=== PATIENT | female | born 1985 | race Caucasian/White ===

== ENCOUNTER 2019-05-28 11:42 | Emergency (ER) | payer BC ==
[2019-05-28] MEDS ORDERED: TORAdol 30 mg Injection IM ONE (12:32)
[2019-05-28] MEDS ORDERED: Norflex 60 MG/2 ML IM ONE (12:32)
[2019-05-28] MEDS ORDERED: TORAdol 30 mg Injection ONE (12:39)
[2019-05-28] MEDS ORDERED: Norflex 60 MG/2 ML ONE (12:45)
--- NOTE | 2019-05-28 12:47 | ERPHSYRPT ---
- History of Present Illness Time Seen by Provider: 05/28/19 12:23 Source: patient Exam Limitations: no limitations Patient Subjective Stated Complaint: pt her for left sided back pain that radiates down left leg for a month now, no injury,was seen at [facility] and sent here Triage Nursing Assessment: pt alert,walked in , no distress, resp easy, skin w/d /p, moves all ext well, Physician History: 33 years old female presented in the ER with 1 month history of left low back/ back tie pain with radiation to left foot area with progressive worsening. Patient was recently on a cruise ship and was quarantined for 14 days and went back to work 2 days ago and yesterday while standing her pain was getting worse. She also complained of some tingling/numbness sensation on the left lateral heel area but no weakness in the lower extremities. No loss of bowel or bladder control. No swelling of the extremity. No fever or chills reported. Denies any fall or trauma to the back. Timing/Duration: week(s) (4), gradual onset, worse Method of Injury: unknown Quality: sharp, throbbing Back Pain Radiation: upper legs, lower legs, feet Severity of Pain-Max: severe Severity of Pain-Current: severe Modifying Factors: Improves With: movement, pain medication Associated Symptoms: tingling in legs/feet, No fever, No chills, No sweating, No urinary incontinence, No loss of bowel control, No constipation, No nausea, No vomiting, No problems urinating, No light-headedness, No dizziness, No weakness, No sensory/motor loss, No muscle spasms, No other Previous symptoms: no prior history Allergies/Adverse Reactions: No Known Drug Allergies Allergy (Unverified 05/28/19 12:11) Hx Influenza Vaccination/Date Given: Yes Hx Pneumococcal Vaccination/Date Given: No Immunizations Up to Date: Yes Travel Risk - International Travel Have you traveled outside of the country in past 3 weeks: Yes If Yes, where;: [place] Have you or anyone close to you been diagnosed with or: No Do your reside in a community with a known COVID-19 case?: Yes If Yes where:: [place] - Coronavirus Screening Has patient experienced Coronavirus symptoms: No - Review of Systems Constitutional: No Symptoms Eyes: No Symptoms Ears, Nose, & Throat: No Symptoms Respiratory: No Symptoms Cardiac: No Symptoms Abdominal/Gastrointestinal: No Symptoms Genitourinary Symptoms: No Symptoms Musculoskeletal: Back Pain, Myalgias Skin: No Symptoms Neurological: No Symptoms Psychological: No Symptoms Endocrine: No Symptoms Hematologic/Lymphatic: No Symptoms Immunological/Allergic: No Symptoms - Past Medical History Pertinent Past Medical History: No - Past Surgical History Past Surgical History: Yes Female Surgical History: Section, Other Other Surgical History: ablasion - Social History Smoking Status: Never smoker Exposure to second hand smoke: No Drug Use: marijuana Patient Lives Alone: No - Female History Hx Last Menstrual Period: ablasion Hx Now: No - Nursing Vital Signs Nursing Vital Signs: Initial Vital Signs Temperature 97.9 F 05/28/19 12:00 Pulse Rate 66 05/28/19 12:00 Respiratory Rate 20 05/28/19 12:00 Blood Pressure 144/99 05/28/19 12:00 O2 Sat by Pulse Oximetry 100 05/28/19 12:00 Pain Scale Pain Intensity [Left Back] 8 Pain Intensity 8 - Physical Exam General Appearance: no apparent distress Eye Exam: eyes nml inspection Ears, Nose, Throat Exam: normal ENT inspection Neck Exam: normal inspection Respiratory Exam: normal breath sounds, lungs clear Cardiovascular Exam: regular rate/rhythm, normal heart sounds Gastrointestinal Exam: soft, normal bowel sounds, No tenderness Back Exam: normal inspection, normal range of motion, muscle spasm, point tenderness (Left sacroiliac area), No CVA tenderness, No vertebral tenderness Extremity Exam: normal inspection, pelvis stable, other (Positive straight leg raising test on the left at 45 degree elevation), No parasthesia, No azeb's sign Neurologic Exam: alert, oriented x 3, cooperative, multigraph operator II-XII nml as tested, normal mood/affect, nml station & gait, sensation nml, No motor deficits, No sensory deficit Skin Exam: normal color SpO2 Interpretation: normal SpO2: 100 O2 Delivery: Room Air Ordered Tests: Medication Summary Discontinued Medications Generic Name Dose Route Start Last Admin Trade Name Freq PRN Reason Stop Dose Admin Ketorolac Tromethamine 30 mg 05/28/19 12:32 05/28/19 12:48 Toradol 30 Mg Injection IM 05/28/19 12:33 30 mg STAT ONE Administration Ketorolac Tromethamine Confirm 05/28/19 12:39 Toradol 30 Mg Injection Administered 05/28/19 12:40 Dose 30 mg .ROUTE .STK-MED ONE Orphenadrine Citrate 60 mg 05/28/19 12:32 05/28/19 12:47 Norflex 60 Mg/2 Ml IM 05/28/19 12:33 60 mg STAT ONE Administration Orphenadrine Citrate Confirm 05/28/19 12:45 Norflex 60 Mg/2 Ml Administered 05/28/19 12:46 Dose 60 mg .ROUTE .STK-MED ONE - Progress Progress: improved, pain not gone completely Progress Note: 05/28/19 13:33 She is given Toradol and Norflex, on reevaluation her pain is improving. She does not have any cauda equina symptoms but more of a sciatica. Intact neuro and lower extremities. I do not think patient needs MRI immediately now but may be in future if her symptoms do not get better. I would continue with NSAIDs and muscle relaxant to go home and outpatient follow-up. Discussed signs symptoms of worsening needing return to ER which she seemed understanding. Stable for discharge. - Departure Departure Disposition: Home Clinical Impression: Sciatica Qualifiers: Laterality: left Qualified Code(s): M54.32 - Sciatica, left side Condition: Stable Critical Care Time: No Referrals: JAMA HEREDIA FNP [Primary Care Provider] - Instructions: Sciatica (DC) Additional Instructions: Take pain medication/muscle relaxants and follow-up outpatient with primary care for reevaluation. Return to ER for intractable pain, numbness tingling weakness of lower extremities/loss of bowel or bladder control etc. Prescriptions: Diclofenac Sodium 75 mg PO BID #20 tablet. Methocarbamol [Robaxin-750] 750 mg PO TID #30 tablet
[2019-05-28 13:05] VITALS: BP 127/88; PULSE 70
[2019-05-28 13:32] VITALS: O2SAT 100
== END 2019-05-28 13:59 | disposition home or self-care (01) ==
LOC: ED 11:42
DX: M54.32 Sciatica, left side (principal)
CPT/HCPCS: 96372; 99284; J1885; J2360

== ENCOUNTER 2021-01-11 13:18 | Day surgery (SDC) | payer BC ==
[2021-01-11] MEDS ORDERED: LIDOCAINE HCL 2% 100 MG/5 ML IJ ONE (13:19)
[2021-01-11] MEDS ORDERED: Versed 2 MG/2 ML Injection ONE (13:57)
[2021-01-11] MEDS ORDERED: DIPRIVAN 200 MG/20 ML IV ONE (15:38)
[2021-01-11] MEDS ORDERED: Xylocaine-Mpf 2% 5 Ml Vial ONE (15:38)
--- NOTE | 2021-01-11 16:24 | XRAY ---
Indication: Bilateral L4-S1 MBB. Intraoperative fluoroscopy provided for 15 seconds. Single digital spot image submitted for interpretation demonstrates posterior needle tips projecting over the expected left and right L4-S1 nerve roots. Correlate with intraoperative findings/report.
[2021-01-11] MEDS ORDERED: Lactated Ringers 1,000 ML IV ONE (16:29)
--- NOTE | 2021-01-11 16:39 | XRAY ---
15 seconds fluoroscopy time in surgery for bilateral L4-S1 MBB.
== END 2021-01-11 16:05 | disposition home or self-care (01) ==
LOC: SDC-PAIN 13:18
PROVIDERS: ATTEND Psychiatry & Neurology Pain Medicine
DX: M47.816 Spondylosis without myelopathy or radiculopathy, lumbar region (principal); Z79.891 Long term (current) use of opiate analgesic
CPT/HCPCS: 64493; 64494; 72020; 77002; 84703; J2250; J2704

== ENCOUNTER 2022-03-18 06:17 | Emergency (ER) | payer BC ==
[2022-03-18] MEDS ORDERED: CLINDAMYCIN-D5W 900 MG/50 ML*** 900 MG/50 ML BAG IV STA (06:24)
[2022-03-18] MEDS ORDERED: NORCO 5/325 MG PO ONE (06:26)
[2022-03-18 06:33] VITALS: BP 147/99; PULSE 85; O2SAT 97
--- NOTE | 2022-03-18 06:33 | ERPHSYRPT ---
- History of Present Illness Time Seen by Provider: 03/18/22 06:27 Source: patient Exam Limitations: no limitations Physician History: Patient is a 36-year-old female who presents with complaint of left maxillary dental pain. This started yesterday morning the dentist did call her in some penicillin which she has been taking overnight however the entire right side of her face is swollen and she has had fairly severe pain. She says that the tooth involved is 1 that the dentist has recommended a root canal on for some time however she cannot afford it. Timing/Duration: yesterday Severity: severe Modifying Factors: Improves With: eating Allergies/Adverse Reactions: No Known Drug Allergies Allergy (Unverified 05/28/19 12:11) Hx Influenza Vaccination/Date Given: Yes Hx Pneumococcal Vaccination/Date Given: No - Review of Systems Constitutional: No Fever, No Chills Eyes: No Symptoms Ears, Nose, & Throat: No Symptoms, Mouth Pain, Mouth Swelling, Other (Dental pain) Respiratory: No Cough, No Dyspnea Cardiac: No Chest Pain, No Edema, No Syncope Abdominal/Gastrointestinal: No Abdominal Pain, No Nausea, No Vomiting, No Diarrhea Genitourinary Symptoms: No Dysuria Musculoskeletal: No Back Pain, No Neck Pain Skin: No Rash Neurological: No Dizziness, No Focal Weakness, No Sensory Changes Psychological: No Symptoms Endocrine: No Symptoms All Other Systems: Reviewed and Negative - Past Medical History Pertinent Past Medical History: No - Past Surgical History Past Surgical History: Yes Female Surgical History: Section, Other Other Surgical History: ablasion - Social History Smoking Status: Never smoker Exposure to second hand smoke: No Drug Use: marijuana Patient Lives Alone: No - Physical Exam General Appearance: mild distress Eye Exam: PERRL/EOMI, eyes nml inspection Ears, Nose, Throat Exam: normal ENT inspection, TMs normal, pharynx normal, moist mucous membranes, other (There is marked swelling of the left maxillary area it is extremely tender there is a molar on the left upper maxillary that is very tender to percussion.) Neck Exam: normal inspection, non-tender, supple, full range of motion Respiratory Exam: normal breath sounds, lungs clear, No respiratory distress Cardiovascular Exam: regular rate/rhythm, normal heart sounds, normal peripheral pulses Gastrointestinal/Abdomen Exam: soft, normal bowel sounds, No tenderness, No mass Back Exam: normal inspection, normal range of motion, No CVA tenderness, No vertebral tenderness Extremity Exam: normal inspection, normal range of motion, pelvis stable Neurologic Exam: alert, oriented x 3, cooperative, normal mood/affect, nml cerebellar function, nml station & gait, sensation nml, No motor deficits Skin Exam: normal color, warm, dry, No rash Lymphatic Exam: No adenopathy - Course Nursing assessment & vital signs reviewed: Yes Ordered Tests: Medication Summary Generic Name Dose Route Start Last Admin Trade Name Freq PRN Reason Stop Dose Admin Hydrocodone Bitart/Acetaminophen 1 tab 03/18/22 06:26 Hydrocodone/Apap 5/325 1 Tab Tablet PO 03/18/22 06:27 STAT ONE Clindamycin HCl/Dextrose 900 mg in 50 mls @ 100 mls/hr 03/18/22 06:24 Clindamycin-D5w 900 Mg/50 Ml IV 03/18/22 06:53 STAT STA - Progress Progress: unchanged Progress Note: 03/18/22 06:32 Patient will receive a IV dose of Cleocin dental rolls for pain Blanco for pain and continue her metronidazole given by her PCP along with more oral Cleocin at home. She will contact her dentist tomorrow. 03/18/22 06:32 - Departure Departure Disposition: Home Clinical Impression: Dental abscess Condition: Stable Critical Care Time: No Referrals: DOCTOR,NO FAMILY [Primary Care Provider] - Follow up/PCP as directed Instructions: Tooth Abscess (DC) Prescriptions: Hydrocodone/Acetaminophen [Hydrocodone-Acetamin 5-325 mg] 1 tab PO Q6HPRN PRN 2 Days #8 tablet MDD 4 PRN Reason: Pain clindamycin HCL [Cleocin HCl] 300 mg PO TID 7 Days #21 cap
[2022-03-18] MEDS ORDERED: CLINDAMYCIN-D5W 900 MG/50 ML*** 900 MG/50 ML BAG IV ONE (06:38)
[2022-03-18] MEDS ORDERED: NORCO 5/325 MG ONE (06:38)
== END 2022-03-18 07:16 | disposition home or self-care (01) ==
LOC: ED 06:17
DX: K04.7 Periapical abscess without sinus (principal); K08.89 Other specified disorders of teeth and supporting structures; Z79.891 Long term (current) use of opiate analgesic
CPT/HCPCS: 96365; 99283; A9270-GY